=== PATIENT | female | born 1985 | race Caucasian/White ===

== ENCOUNTER 2019-02-27 00:14 | Emergency (ER) | payer OTHER ==
[2019-02-27 01:01] LABS: Absolute Lymphocytes (CBC) 2.3 K/uL (0.7-4.9); Absolute Monocytes 0.4 K/uL (0.1-1.3); Absolute Neutrophil 5.4 K/uL (1.8-8.0); Basophils % 0.4 % (0-1.3); Eosinophils % 0.8 % (0-4.4); Hematocrit 37.3 % (36.0-45.0); Lymphocytes % 27.8 % (15.3-44.8); MPV 9.8 fL (7.6-11.3); Monocytes % 5.4 % (3.3-12.3); RBC Red Blood Cell Count 4.29 M/uL (3.86-4.86)
--- NOTE | 2019-02-27 01:05 | ER ---
Nurse's Notes [facility] Name: Gaby Nguyen Age: 33 yrs Sex: Female : 1985 Arrival Date: 02/27/2019 Time: 00:18 Bed 5 Private MD: Diagnosis: Gastritis, unspecified, without bleeding Presentation: 02/27 00:20 Presenting complaint: Patient states: I just woke up with really bad stomach pains. ed1 Transition of care: patient was not received from another setting of care. Onset of symptoms was February 27, 2019. Risk Assessment: Do you want to hurt yourself or someone else? Patient reports no desire to harm self or others. Initial Sepsis Screen: Does the patient meet any 2 criteria? No. Patient's initial sepsis screen is negative. Does the patient have a suspected source of infection? No. Patient's initial sepsis screen is negative. 00:20 Method Of Arrival: Ambulatory ed1 00:20 Acuity: AUDREY 3 ed1 00:42 Care prior to arrival: None. ak1 Triage Assessment: 00:21 General: Appears uncomfortable, Behavior is crying. Pain: Complains of pain in right ed1 upper quadrant and left upper quadrant Pain currently is 8 out of 10 on a pain scale. GI: Reports upper abdominal pain, Patient currently denies diarrhea, nausea, vomiting. TECHNOLOGY LEAD: 00:21 LMP 12/2018 ed1 Historical: - Allergies: 00:21 No Known Allergies; ed1 - Home Meds: 00:21 None [Active]; ed1 - PMHx: 00:21 None; ed1 - PSHx: 00:21 Appendectomy; D \T\ C; Gastric Sleeve; ed1 - Immunization history:: Adult Immunizations up to date. - Social history:: Smoking status: Patient/guardian denies using tobacco. - Ebola Screening: : Patient negative for fever greater than or equal to 101.5 degrees Fahrenheit, and additional compatible Ebola Virus Disease symptoms Patient denies exposure to infectious person Patient denies travel to an Ebola-affected area in the 21 days before illness onset No symptoms or risks identified at this time. Screenin:42 Abuse screen: Denies threats or abuse. Denies injuries from another. Nutritional ak1 screening: No deficits noted. Tuberculosis screening: No symptoms or risk factors identified. Fall Risk None identified. Assessment: 00:42 General: Appears uncomfortable, Behavior is calm, cooperative. Pain: Complains of pain ak1 in left upper quadrant and right upper quadrant. Neuro: Level of Consciousness is awake, alert, obeys commands, Oriented to person, place, time, situation, Crepe Sole Wire Brusher are equal bilaterally Moves all extremities. Gait is steady, Speech is normal, Facial symmetry appears normal, Pupils are PERRLA, pt c/o increased frequency of headaches since August. pt has not been seen by Neurologist for headaches. . Cardiovascular: No deficits noted. Respiratory: No deficits noted. GI: Bowel sounds present X 4 quads. Abd is soft X 4 quads pt c/o abd pain and nausea. pt stated she had fried shrimp for dinner. pt had gastric sleeve 3 months [employer] in [place]. : No signs and/or symptoms were reported regarding the genitourinary system. EENT: No signs and/or symptoms were reported regarding the EENT system. Derm: No signs and/or symptoms reported regarding the dermatologic system. Musculoskeletal: No signs and/or symptoms reported regarding the musculoskeletal system. 00:58 Reassessment: Patient appears in no apparent distress at this time. General: Appears ak1 comfortable, Behavior is calm, cooperative. Pain: Pain currently is 3 out of 10 on a pain scale. Quality of pain is described as aching, crampy. 01:24 Reassessment: waiting on lab results prior to discharging pt per ERP. ak1 02:28 Reassessment: Patient denies pain at this time. Patient states feeling better. Patient ak1 states symptoms have improved. no vomiting noted or reported. pt with steady gait at discharge. . Vital Signs: 00:21 BP 139 / 73; Pulse 73; Resp 21; Temp 97.5; Pulse Ox 99% on R/A; Weight 74.84 kg; Height ed1 5 ft. 3 in. (160.02 cm); Pain 8/10; 00:41 BP 109 / 70; Pulse 79; Resp 18; Pulse Ox 99% on R/A; ak1 01:53 BP 110 / 74; Pulse 70; Resp 16; Pulse Ox 99% on R/A; ak1 02:29 BP 115 / 74; Pulse 71; Resp 16; Temp 98.; Pulse Ox 100% on R/A; Pain 0/10; ak1 00:21 Body Mass Index 29.23 (74.84 kg, 160.02 cm) ed1 ED Course: 00:18 Patient arrived in ED. ag3 00:20 Triage completed. ed1 00:21 Arm band placed on left wrist. ed1 00:23 Nathanael Hatch MD is Attending Physician. tw4 00:27 Destinee Ma, RN is Primary Nurse. ak1 00:40 Initial lab(s) drawn, by me, sent to lab. Urine collected: clean catch specimen, destinee ak1 colored, Amount Voided: 70mL. Inserted saline lock: 20 gauge in right antecubital area, using aseptic technique. Blood collected. 00:42 Patient has correct armband on for positive identification. Bed in low position. Call ak1 light in reach. Side rails up X 1. Adult w/ patient. Pulse ox on. NIBP on. Door closed. Lights dimmed. Warm blanket given. 01:24 No provider procedures requiring assistance completed. ak1 02:28 IV discontinued, intact, bleeding controlled, No redness/swelling at site. Pressure ak1 dressing applied. Administered Medications: 00:57 Drug: GI Cocktail without - (Maalox Suspension 30 ml, Lidocaine Liquid 2 % 15 ak1 ml) Route: PO; 01:38 Follow up: Response: No adverse reaction ak1 00:57 Drug: Zofran 4 mg Route: IVP; Site: right antecubital; ak1 01:38 Follow up: Response: No adverse reaction ak1 Outcome: 01:04 Discharge ordered by . tw4 02:28 Discharged to home ambulatory, with family. ak1 02:28 Condition: good 02:28 Discharge instructions given to patient, family, Instructed on discharge instructions, follow up and referral plans. no drinking with medication, no driving heavy equipment, medication usage, Demonstrated understanding of instructions, follow-up care, medications, Prescriptions given X 1. 02:29 Patient left the ED. ak1 Signatures: Emelia Bishop RN RN ed1 Destinee Ma, RN RN ak1 Nathanael Hatch MD MD tw4 Melissa Scales ag3
--- NOTE | 2019-02-27 01:05 | EDPHYS ---
Physician Documentation [facility] Name: Gaby Nguyen Age: 33 yrs Sex: Female : 1985 Arrival Date: 02/27/2019 Time: 00:18 Bed 5 Private MD: ED Physician Nathanael Hatch HPI: 02/27 02:20 This 33 yrs old Female presents to ER via Ambulatory with complaints of tw4 Abdominal Pain. 02:20 The patient presents with abdominal pain. Onset: The symptoms/episode began/occurred tw4 today. The symptoms do not radiate. Associated signs and symptoms: none. The symptoms are described as sharp. Modifying factors: The symptoms are alleviated by nothing, the symptoms are aggravated by nothing. Severity of pain: At its worst the pain was moderate in the emergency department the pain is unchanged. The patient has not experienced similar symptoms in the past. INSOLE CHANNELER: 00:21 LMP 12/2018 ed1 Historical: - Allergies: 00:21 No Known Allergies; ed1 - Home Meds: 00:21 None [Active]; ed1 - PMHx: 00:21 None; ed1 - PSHx: 00:21 Appendectomy; D \T\ C; Gastric Sleeve; ed1 - Immunization history:: Adult Immunizations up to date. - Social history:: Smoking status: Patient/guardian denies using tobacco. - Ebola Screening: : Patient negative for fever greater than or equal to 101.5 degrees Fahrenheit, and additional compatible Ebola Virus Disease symptoms Patient denies exposure to infectious person Patient denies travel to an Ebola-affected area in the 21 days before illness onset No symptoms or risks identified at this time. ROS: 02:20 Constitutional: Negative for fever, chills, and weight loss, Eyes: Negative for injury, tw4 pain, redness, and discharge, Cardiovascular: Negative for chest pain, palpitations, and edema, Respiratory: Negative for shortness of breath, cough, wheezing, and pleuritic chest pain, Back: Negative for injury and pain, MS/Extremity: Negative for injury and deformity, Skin: Negative for injury, rash, and discoloration. 02:20 Abdomen/GI: Positive for abdominal pain, Negative for nausea and vomiting, nausea, vomiting, and diarrhea, nausea, abdominal cramps, abdominal distension, anorexia, dysphagia, black/tarry stool, rectal pain. Exam: 02:20 Constitutional: This is a well developed, well nourished patient who is awake, alert, tw4 and in no acute distress. Head/Face: Normocephalic, atraumatic. Chest/axilla: Normal chest wall appearance and motion. Nontender with no deformity. No lesions are appreciated. Cardiovascular: Regular rate and rhythm with a normal S1 and S2. No gallops, murmurs, or rubs. Normal PMI, no JVD. No pulse deficits. Respiratory: Lungs have equal breath sounds bilaterally, clear to auscultation and percussion. No rales, rhonchi or wheezes noted. No increased work of breathing, no retractions or nasal flaring. Back: No spinal tenderness. No costovertebral tenderness. Full range of motion. MS/ Extremity: Pulses equal, no cyanosis. Neurovascular intact. Full, normal range of motion. Neuro: Awake and alert, GCS 15, oriented to person, place, time, and situation. Cranial nerves II-XII grossly intact. Motor strength 5/5 in all extremities. Sensory grossly intact. Cerebellar exam normal. Normal gait. 02:20 Abdomen/GI: Inspection: bruising, Bowel sounds: normal, Palpation: moderate abdominal tenderness, in the epigastric area. Vital Signs: 00:21 BP 139 / 73; Pulse 73; Resp 21; Temp 97.5; Pulse Ox 99% on R/A; Weight 74.84 kg; Height ed1 5 ft. 3 in. (160.02 cm); Pain 8/10; 00:41 BP 109 / 70; Pulse 79; Resp 18; Pulse Ox 99% on R/A; ak1 01:53 BP 110 / 74; Pulse 70; Resp 16; Pulse Ox 99% on R/A; ak1 02:29 BP 115 / 74; Pulse 71; Resp 16; Temp 98.; Pulse Ox 100% on R/A; Pain 0/10; ak1 00:21 Body Mass Index 29.23 (74.84 kg, 160.02 cm) ed1 MDM: 00:23 Patient medically screened. tw4 02:20 Data reviewed: vital signs, nurses notes. Data interpreted: Pulse oximetry: tw4 Interpretation: normal. Counseling: I had a detailed discussion with the patient and/or guardian regarding: the historical points, exam findings, and any diagnostic results supporting the discharge/admit diagnosis, lab results. Medication response: Medication response: GI Cocktail relieved the patient's pain. The symptoms have resolved. Response to treatment: the patient's symptoms have resolved after treatment, and as a result, I will discharge patient. Special discussion: Based on the patient's Hx, exam, and Dx evaluation, there is no indication for emergent surgery or inpatient Tx. It is understood by the patient/guardian that if the Sx's persist or worsen they need to return immediately for re-evaluation. I discussed with the patient/guardian in detail that at this point there is no indication for admission to the hospital. It is understood, however, that if the symptoms persist or worsen the patient needs to return immediately for re-evaluation. 02/27 00:25 Order name: Basic Metabolic Panel; Complete Time: 02:17 02/27 02:17 Interpretation: Normal except: K 3.3; CL 108. 02/27 00:25 Order name: CBC with Diff; Complete Time: 02:17 02/27 02:17 Interpretation: Normal except: MCV 86.9. 02/27 00:25 Order name: Creatinine for Radiology; Complete Time: 02:17 02/27 02:18 Interpretation: Within normal limits: GFR > 90; CRE 0.55. 02/27 00:25 Order name: Hepatic Function; Complete Time: 02:17 02/27 02:17 Interpretation: Normal except: GLOB 3.7; A/G 1.0. 02/27 00:25 Order name: Lipase; Complete Time: 02:17 02/27 02:18 Interpretation: Within normal limits: LIP 175. 02/27 00:41 Order name: Urine Microscopic Only mg2 02/27 00:25 Order name: IV Saline Lock; Complete Time: 00:40 02/27 00:25 Order name: Labs collected and sent; Complete Time: 00:40 02/27 00:25 Order name: Urine Dipstick-Ancillary (obtain specimen); Complete Time: 00:40 02/27 00:25 Order name: Urine Test (obtain specimen); Complete Time: 00:40 02/27 00:49 Order name: Urine Dipstick--Ancillary (enter results); Complete Time: 02:17 ar5 02/27 02:17 Interpretation: Normal except: UKET 3+; UPROT 1+. tw4 02/27 00:49 Order name: Urine --Ancillary (enter results); Complete Time: 02:17 ar5 02/27 02:18 Interpretation: Within normal limits: URINE PREG NEG; USPGR 1.020. tw4 Administered Medications: 00:57 Drug: GI Cocktail without - (Maalox Suspension 30 ml, Lidocaine Liquid 2 % 15 ak1 ml) Route: PO; 01:38 Follow up: Response: No adverse reaction ak1 00:57 Drug: Zofran 4 mg Route: IVP; Site: right antecubital; ak1 01:38 Follow up: Response: No adverse reaction ak1 Disposition: 02/27/19 01:04 Discharged to Home. Impression: Gastritis, unspecified, without bleeding. - Condition is Stable. - Discharge Instructions: Gastritis, Adult. - Prescriptions for Protonix 40 mg Oral Tablet - take 1 tablet by ORAL route once daily; 30 tablet. - Medication Reconciliation Form, Thank You Letter, Antibiotic Education, Prescription Opioid Use form. - Follow up: Private Physician; When: Upon discharge from the Emergency Department; Reason: If symptoms return, Recheck today's complaints, Continuance of care. - Problem is new. - Symptoms have improved. Signatures: Dispatcher [employer] EDEmelia Salinas, RN RN ed1 Hyun Ma RN RN ak1 Nathanael Hatch MD MD tw4 Corrections: (The following items were deleted from the chart) 02:29 01:04 02/27/2019 01:04 Discharged to Home. Impression: Gastritis, unspecified, without ak1 bleeding. Condition is Stable. Forms are Medication Reconciliation Form, Thank You Letter, Antibiotic Education, Prescription Opioid Use. Follow up: Private Physician; When: Upon discharge from the Emergency Department; Reason: If symptoms return, Recheck today's complaints, Continuance of care. Problem is new. Symptoms have improved. tw4
[2019-02-27] MEDS ORDERED: ONDANSETRON 4 MG/2 ML VIAL ONE (01:08)
[2019-02-27] MEDS ORDERED: MAGNE/ALUM HYDROXD 30 ML UCUP ONE (01:08)
[2019-02-27] MEDS ORDERED: LIDOCAINE VISCOUS 2% SOLN 15 ML UDC ONE (01:09)
[2019-02-27 01:54] LABS: ALT/SGPT 20 U/L (12-78); AST/SGOT 28 U/L (15-37); Albumin 3.8 g/dL (3.4-5.0); Alkaline Phosphatase 50 U/L (45-117); BUN Blood Urea Nitrogen 13 mg/dL (7-18); Bicarbonate 22 mmol/L (21-32); Bilirubin Direct 0.2 mg/dL (0-0.2); Bilirubin Total 0.9 mg/dL (0.2-1.0); Glucose Level 88 mg/dL (74-106); Lipase 175 U/L (73-393); Potassium 3.3 mmol/L (3.5-5.1); Protein, Total 7.5 g/dL (6.4-8.2); Sodium Level 142 mmol/L (136-145)
[2019-02-27 02:02] LABS: Urine Blood NEGATIVE (NEG); Urine Glucose NEGATIVE (NEG); Urine Protein 1+ (NEG)
[2019-02-27 03:41] LABS: Urine Mucus 3+ /HPF (NONE SEEN)
[2019-02-27 03:42] LABS: Urine Bacteria <20 /HPF (<20); Urine Culture Reflex Order NOT NEEDED; Urine RBC <5 /HPF (NONE SEEN)
== END 2019-02-27 02:29 | disposition home or self-care (01) ==
LOC: ER 00:14
DX: K29.70 Gastritis, unspecified, without bleeding (principal)
CPT/HCPCS: 36415; 80048; 80076; 81003; 81015; 81025; 83690; 85025; 96374; 99284; J2405

== ENCOUNTER 2019-07-28 06:50 | Emergency (ER) | payer OTHER ==
[2019-07-28] MEDS ORDERED: NA CHLORIDE 0.9% 1,000 ML ONE (07:07)
[2019-07-28] MEDS ORDERED: DIPHENHYDRAMINE 50 MG/ML VIAL ONE (07:07)
[2019-07-28] MEDS ORDERED: KETOROLAC 30 MG/ML INJ ONE (07:07)
[2019-07-28] MEDS ORDERED: METOCLOPRAMIDE 10 MG/2mL INJ ONE (07:07)
[2019-07-28] MEDS ORDERED: NA CHLORIDE 0.9% 50 ML IV ONE (07:08)
--- NOTE | 2019-07-28 08:30 | ER ---
Nurse's Notes [facility] Name: Gaby Nguyen Age: 33 yrs Sex: Female : 1985 Arrival Date: 07/28/2019 Time: 06:52 Bed 5 Private MD: Diagnosis: Migraine Presentation: 07/28 07:04 Presenting complaint: Patient states: Migraines x 1 year that have been occurring more ss frequently, now every 3 weeks. Patient reports that this migraine today began 4 hours. Transition of care: patient was not received from another setting of care. Onset of symptoms was 2018. Risk Assessment: Do you want to hurt yourself or someone else? Patient reports no desire to harm self or others. Initial Sepsis Screen: Does the patient meet any 2 criteria? No. Patient's initial sepsis screen is negative. Does the patient have a suspected source of infection? No. Patient's initial sepsis screen is negative. Care prior to arrival: None. 07:04 Method Of Arrival: Ambulatory ss 07:04 Acuity: AUDREY 4 ss Historical: - Allergies: 07:03 No Known Allergies; ph - PSHx: 07:03 Appendectomy; D \T\ C; Gastric Sleeve; ph - Immunization history:: Adult Immunizations up to date. - Social history:: Smoking status: Patient/guardian denies using tobacco. - Ebola Screening: : Patient denies exposure to infectious person Patient denies travel to an Ebola-affected area in the 21 days before illness onset. Screenin:04 Abuse screen: Denies threats or abuse. Denies injuries from another. Nutritional ph screening: No deficits noted. Tuberculosis screening: No symptoms or risk factors identified. Fall Risk None identified. Assessment: 07:26 General: Appears in no apparent distress. uncomfortable, slender, well groomed, ph Behavior is calm, cooperative, appropriate for age. Pain: Complains of pain in left side of head. Neuro: Level of Consciousness is awake, alert, obeys commands, Oriented to person, place, time, situation, Speech is normal, Facial symmetry appears normal, Reports headache in left frontal area, Denies blurred vision dizziness. Cardiovascular: Capillary refill < 3 seconds in bilateral fingers Patient's skin is warm and dry. Respiratory: Airway is patent Respiratory effort is even, unlabored, Respiratory pattern is regular, symmetrical. GI: Abdomen is flat, non-distended, Reports nausea, Patient currently denies abdominal pain, vomiting. Derm: Skin is intact, is healthy with good turgor, Skin is pink, warm \T\ dry. Musculoskeletal: Circulation, motion, and sensation intact. Range of motion: intact in all extremities. 08:27 Reassessment: Patient appears in no apparent distress at this time. Patient and/or ph family updated on plan of care and expected duration. Pain level reassessed. Patient is alert, oriented x 3, equal unlabored respirations, skin warm/dry/pink. Pt reports that pain has improved, awaiting d/c. Vital Signs: 07:04 BP 121 / 83; Pulse 76; Resp 16; Temp 98.9(TE); Pulse Ox 100% on R/A; Weight 59.42 kg; ss Height 5 ft. 3 in. (160.02 cm); Pain 6/10; 08:28 BP 118 / 74; Pulse 75; Resp 18; Temp 97.9; Pulse Ox 100% on R/A; ph 07:04 Body Mass Index 23.21 (59.42 kg, 160.02 cm) ss ED Course: 06:52 Patient arrived in ED. ds1 06:53 Suyapa Andrews [facility]-C [facility]. kb 06:54 Nathanael Hatch MD is Attending Physician. kb 07:02 Nona Camara, DOM is Primary Nurse. ph 07:04 Arm band placed on right wrist. ss 07:09 Triage completed. ss 07:25 Inserted saline lock: 22 gauge in right antecubital area, using aseptic technique. ph 07:27 Patient has correct armband on for positive identification. Bed in low position. Call ph light in reach. Side rails up X 1. Pulse ox on. NIBP on. Door closed. Noise minimized. Lights dimmed. Head of bed elevated. 08:37 No provider procedures requiring assistance completed. IV discontinued, intact, ph bleeding controlled, No redness/swelling at site. Pressure dressing applied. Administered Medications: 07:22 Drug: NS 0.9% 1000 ml Route: IV; Rate: 1000 ml; Site: right antecubital; ph 08:29 Follow up: Response: No adverse reaction; IV Status: Completed infusion; IV Intake: ph 1000ml 07:23 Drug: TORadol - Ketorolac 15 mg Route: IVP; Site: right antecubital; ph 08:29 Follow up: Response: No adverse reaction; Pain is decreased ph 07:24 Drug: Reglan 10 mg {Note: mixed in 50cc NS.} Route: IVP; Site: right antecubital; ph 08:29 Follow up: Response: No adverse reaction ph 07:24 Drug: Benadryl 12.5 mg Route: IVP; Site: right antecubital; ph 08:29 Follow up: Response: No adverse reaction ph Intake: 08:29 IV: 1000ml; Total: 1000ml. ph Outcome: 08:28 Discharge ordered by . kb 08:37 Discharged to home ambulatory, with family. ph 08:37 Condition: improved 08:37 Discharge instructions given to patient, Instructed on discharge instructions, follow up and referral plans. Demonstrated understanding of instructions, follow-up care. 08:37 Patient left the ED. ph Signatures: Suyapa Andrews, TAYA-C TAYA-Louisa Durbin ds1 Maggie Mello RN RN Nona Camara RN RN ph
--- NOTE | 2019-07-28 08:31 | EDPHYS ---
Physician Documentation [facility] Name: Gaby Nguyen Age: 33 yrs Sex: Female : 1985 Arrival Date: 07/28/2019 Time: 06:52 Bed 5 Private MD: ED Physician Nathanael Hatch HPI: 07/28 07:10 This 33 yrs old Female presents to ER via Ambulatory with complaints of kb Migraine, Nausea. 07:10 The patient complains of pain to the left side of head. The patient describes the kb headache as constant. Onset: The symptoms/episode began/occurred 4 hour(s) ago. Associated signs and symptoms: Pertinent positives: nausea, Photophobia. Severity of symptoms: At its worst the pain was moderate, in the emergency department the pain is unchanged. Headache History: The patient has had previous headaches and this one is similar to previous episodes. The symptoms are alleviated by nothing. the symptoms are aggravated by nothing. The patient has experienced similar episodes in the past. The patient has not recently seen a physician. Pt reports migraine that started at 0300. States she did not take anything for it because she didn't want it to go away before she came in. States she has a history of migraines, but they have been getting more frequent (every 3 weeks). Normally takes excedrin and ibuprofen for them and it relieves the headache. Has not seen a neurologist. Historical: - Allergies: 07:03 No Known Allergies; ph - PSHx: 07:03 Appendectomy; D \T\ C; Gastric Sleeve; ph - Immunization history:: Adult Immunizations up to date. - Social history:: Smoking status: Patient/guardian denies using tobacco. - Ebola Screening: : Patient denies exposure to infectious person Patient denies travel to an Ebola-affected area in the 21 days before illness onset. ROS: 07:08 Constitutional: Negative for fever, chills, and weight loss, Eyes: Negative for injury, kb pain, redness, and discharge, ENT: Negative for injury, pain, and discharge, Neck: Negative for injury, pain, and swelling, Cardiovascular: Negative for chest pain, palpitations, and edema, Respiratory: Negative for shortness of breath, cough, wheezing, and pleuritic chest pain, Abdomen/GI: Negative for abdominal pain, vomiting, diarrhea, and constipation. +nausea Back: Negative for injury and pain, MS/Extremity: Negative for injury and deformity, Skin: Negative for injury, rash, and discoloration. 07:08 Neuro: Positive for headache, Negative for altered mental status, dizziness, gait disturbance, hearing loss, loss of consciousness, numbness, seizure activity, speech changes, syncope, near syncope, tingling, tinnitus, tremor, visual changes, weakness. Exam: 07:09 Constitutional: This is a well developed, well nourished patient who is awake, alert, kb and in no acute distress. Head/Face: Normocephalic, atraumatic. Eyes: Pupils equal round and reactive to light, extra-ocular motions intact. Lids and lashes normal. Conjunctiva and sclera are non-icteric and not injected. Cornea within normal limits. Periorbital areas with no swelling, redness, or edema. ENT: Nares patent. No nasal discharge, no septal abnormalities noted. Tympanic membranes are normal and external auditory canals are clear. Oropharynx with no redness, swelling, or masses, exudates, or evidence of obstruction, uvula midline. Mucous membranes moist. Neck: Trachea midline, no thyromegaly or masses palpated, and no cervical lymphadenopathy. Supple, full range of motion without nuchal rigidity, or vertebral point tenderness. No Meningismus. Chest/axilla: Normal chest wall appearance and motion. Nontender with no deformity. No lesions are appreciated. Cardiovascular: Regular rate and rhythm with a normal S1 and S2. No gallops, murmurs, or rubs. Normal PMI, no JVD. No pulse deficits. Respiratory: Lungs have equal breath sounds bilaterally, clear to auscultation and percussion. No rales, rhonchi or wheezes noted. No increased work of breathing, no retractions or nasal flaring. Abdomen/GI: Soft, non-tender, with normal bowel sounds. No distension or tympany. No guarding or rebound. No evidence of tenderness throughout. Skin: Warm, dry with normal turgor. Normal color with no rashes, no lesions, and no evidence of cellulitis. MS/ Extremity: Pulses equal, no cyanosis. Neurovascular intact. Full, normal range of motion. Neuro: Awake and alert, GCS 15, oriented to person, place, time, and situation. Cranial nerves II-XII grossly intact. Motor strength 5/5 in all extremities. Sensory grossly intact. Cerebellar exam normal. Normal gait. Vital Signs: 07:04 BP 121 / 83; Pulse 76; Resp 16; Temp 98.9(TE); Pulse Ox 100% on R/A; Weight 59.42 kg; ss Height 5 ft. 3 in. (160.02 cm); Pain 6/10; 08:28 BP 118 / 74; Pulse 75; Resp 18; Temp 97.9; Pulse Ox 100% on R/A; ph 07:04 Body Mass Index 23.21 (59.42 kg, 160.02 cm) ss MDM: 06:58 Patient medically screened. kb 07:09 Data reviewed: vital signs, nurses notes. Data interpreted: Pulse oximetry: on room air kb is 100 %. Interpretation: normal. 07:12 ED course: Discussed CT scan with pt. Pt does not want CT scan at this time, but kb requests an MRI. Educated that MRI would have to be scheduled outpatient and recommended follow up with neurology. 08:28 Counseling: I had a detailed discussion with the patient and/or guardian regarding: the kb historical points, exam findings, and any diagnostic results supporting the discharge/admit diagnosis, the need for outpatient follow up, a family practitioner, to return to the emergency department if symptoms worsen or persist or if there are any questions or concerns that arise at home. ED course: Pt reports she is feeling better after treatment. Educated to follow up with neuro for migraine care. 07/28 07:03 Order name: IV Start; Complete Time: 07:22 kb Administered Medications: 07:22 Drug: NS 0.9% 1000 ml Route: IV; Rate: 1000 ml; Site: right antecubital; ph 08:29 Follow up: Response: No adverse reaction; IV Status: Completed infusion; IV Intake: ph 1000ml 07:23 Drug: TORadol - Ketorolac 15 mg Route: IVP; Site: right antecubital; ph 08:29 Follow up: Response: No adverse reaction; Pain is decreased ph 07:24 Drug: Reglan 10 mg {Note: mixed in 50cc NS.} Route: IVP; Site: right antecubital; ph 08:29 Follow up: Response: No adverse reaction ph 07:24 Drug: Benadryl 12.5 mg Route: IVP; Site: right antecubital; ph 08:29 Follow up: Response: No adverse reaction ph Disposition: 13:25 Co-signature as Attending Physician, Nathanael Hatch MD I agree with the assessment and tw4 plan of care. Disposition: 07/28/19 08:28 Discharged to Home. Impression: Migraine. - Condition is Stable. - Discharge Instructions: Migraine Headache, [id number]. - Medication Reconciliation Form, Thank You Letter, Antibiotic Education, Prescription Opioid Use, Family Work Release form. - Follow up: Emergency Department; When: As needed; Reason: Worsening of condition. Follow up: Private Physician; When: 2 - 3 days; Reason: Recheck today's complaints, Continuance of care, Re-evaluation by your physician. Signatures: Suyapa Andrews FNP-C FNP-Maggie Johnson RN RN Nona Camara RN RN Nathanael López MD MD tw4 Corrections: (The following items were deleted from the chart) 08:37 08:28 07/28/2019 08:28 Discharged to Home. Impression: Migraine. Condition is Stable. ph Forms are Medication Reconciliation Form, Thank You Letter, Antibiotic Education, Prescription Opioid Use. Follow up: Emergency Department; When: As needed; Reason: Worsening of condition. Follow up: Private Physician; When: 2 - 3 days; Reason: Recheck today's complaints, Continuance of care, Re-evaluation by your physician. kb
[2019-07-28 08:45] VITALS: O2SAT 100
[2019-07-28 08:46] VITALS: BP 118/74; TEMP 97.9
== END 2019-07-28 08:37 | disposition home or self-care (01) ==
LOC: ER 06:50
DX: G43.909 Migraine, unspecified, not intractable, without status migrainosus (principal)
CPT/HCPCS: 96361; 96375; 96374; 99284; J2765; J1200; J7030